=== PATIENT | female | born 1945 | race Two or more races ===

== ENCOUNTER → 2024-12-23 | Outpatient (CLI) | payer MEDICARE, MEDICAID, SELFPAY ==
--- NOTE | 2024-12-23 | XR_ITS ---
EXAMINATION: Thoracic spine 3 views TECHNIQUE: AP lateral: Lateral upper dorsal spine 3 views Date and time: December 23, 2024, 12:30 p.m. INDICATIONS: Upper back pain after falling 1 week ago. FINDINGS: Mild kyphosis dorsal spine Moderate osteopenia Depression superior endplate T12, noted on the CT thoracic spine August 04, 2021 No definite acute fracture Mild narrowing thoracic disc bases IMPRESSION: No acute thoracic fracture
--- NOTE | 2024-12-23 | XR_ITS ---
Examination: Ribs, right, with PA chest, 4 views Technique: Chest PA, RIBS AP, RPO, LPO, 4 views Exam date and time: December 23, 2024, 12:33 p.m. INDICATIONS: Patient fell last week with injury to the right chest, right rib pain. FINDINGS: No pneumothorax Normal heart size No acute rib fractures Impression: No pneumothorax pulmonary contusion or hemothorax No acute rib fractures
== END | disposition home or self-care (01) ==
PROVIDERS: PCP Family Medicine; Referring Provider Student in an Organized Health Care Education/Training Program; Visit Provider Student in an Organized Health Care Education/Training Program
DX: S29.9XXA Unspecified injury of thorax, initial encounter (principal); W19.XXXA Unspecified fall, initial encounter
CPT/HCPCS: 71101; 72072